=== PATIENT | female | born 1985 | race African-American/Black ===

== ENCOUNTER 2017-07-05 02:05 | Emergency (ER) | payer OTHER ==
[2017-07-05] MEDS: NAPROXEN 500 MG TABLET PO (02:50)
== END 2017-07-05 02:56 | disposition home or self-care (01) ==
LOC: ER 02:05
DX: M25.512 Pain in left shoulder (principal); F17.210 Nicotine dependence, cigarettes, uncomplicated
CPT/HCPCS: 71010; 99283